=== PATIENT | female | born 1995 | race Caucasian/White ===

== ENCOUNTER 2016-12-31 06:54 | Emergency (ER) | payer BC ==
[2016-12-31] MEDS ORDERED: Acetaminophen ADULT LIQ* 650 MG/20.3 ML UDC PO ONE (07:23)
--- NOTE | 2016-12-31 07:46 | ED ---
Throat Pain/Nasal Congestion - HPI Summary HPI Summary: Patient arrives to ED with a CC of throat pain and mouth ulcers x 4 days. She was seen in a UC clinic 3 days ago and was prescribed lidocaine for the pain. States that she is diagnosed with strep throat 2x per year on average and this feels similar. She states it is painful to eat and swallow and she is unable to sleep due to the pain. Denies recent illness or sick contacts. Denies travel. She denies sexual history. She has tried ibuprofen without relief. - History of Current Complaint Chief Complaint: EDThroatPain Time Seen by Provider: 12/31/16 07:01 Hx Obtained From: Patient Onset/Duration: Gradual Onset Severity: Moderate Associated Signs And Symptoms: Positive: Dysphagia - Epiglottits Risk Factors Epiglottis Risk Factors: Negative - Allergies/Home Medications Allergies/Adverse Reactions: Allergies Allergy/AdvReac Type Severity Reaction Status Date / Time No Known Allergies Allergy Verified 12/31/16 07:02 PMH/Surg Hx/FS Hx/Imm Hx Previously Healthy: Yes Infectious Disease History: No Infectious Disease History: Denies: Traveled Outside the in Last 30 Days - Social History Occupation: Employed Full-time Lives: With Family Alcohol Use: None Hx Substance Use: No Substance Use Type: Reports: None Hx Tobacco Use: No Smoking Status (MU): Never Smoked Tobacco Do You Chew or Dip Tobacco: No Review of Systems Constitutional: Negative Eyes: Negative Positive: Sore Throat, Other - mouth pain and ulcers Cardiovascular: Negative Respiratory: Negative Positive: no symptoms reported, see HPI Musculoskeletal: Negative Positive: Other - oral mucosa with lesions Neurological: Negative Psychological: Normal All Other Systems Reviewed And Are Negative: Yes Physical Exam Triage Information Reviewed: Yes Vital Signs On Initial Exam: Initial Vitals Temp Pulse Resp BP Pulse Ox 97.8 F 79 15 125/79 100 12/31/16 06:58 12/31/16 06:58 12/31/16 06:58 12/31/16 06:58 12/31/16 06:58 Vital Signs Reviewed: Yes Appearance: Positive: Ill-Appearing, Pain Distress Skin: Positive: Warm, Dry, Other - dry mucous membranes, dry oral mucousa Head/Face: Positive: Normal Head/Face Inspection Eyes: Positive: Normal, Conjunctiva Inflammed - injected right eye ENT: Positive: Pharyngeal erythema - without exudates, TMs normal, Tonsillar swelling, Muffled/hoarse voice Dental: Positive: Oropharynx - oral mucousa with 3-4 bray ulcerated lesions with central clearing over top and bottom lips and inside of L cheek, no lesions noted on oropharynx Neck: Positive: Tenderness @ - cervical and anterior lymphnodes Respiratory/Lung Sounds: Positive: Breath Sounds Present Cardiovascular: Positive: Normal Musculoskeletal: Positive: Normal, Strength/ROM Intact Neurological: Positive: Sensory/Motor Intact, Speech Normal Psychiatric: Positive: Anxious - [place] Coma Scale Coma Scale Total: 15 Diagnostics - Vital Signs Vital Signs Temp Pulse Resp BP Pulse Ox 12/31/16 06:58 97.8 F 79 15 125/79 100 - Laboratory Lab Statement: Any lab studies that have been ordered have been reviewed, and results considered in the medical decision making process. EENT Course/Dx - Course Course Of Treatment: Patient seen by [facility] 3 days prior and given lidocaine for relief of apthous ulcers. Denies improvement. Will give Triamcinalone from [employer] and encourage tylenol and keeping mouth moist and using salt water rinses to help disinfect the area. Also encourage vitamin supplements, particularly Vitamin C as this has been shown to improve healing time. Rapid strep negative. Encourage follow up with PCP if symptoms continue. - Differential Diagnoses Differential Diagnoses: Gingivitis, Periodontic Disease, Peritonsillar Ulcer, Pharyngitis - Diagnoses Provider Diagnoses: Aphthous ulcer Discharge - Discharge Plan Condition: Stable Disposition: HOME Prescriptions: Naproxen TAB* [Naprosyn TAB*] 500 mg PO Q8H PRN #60 tab PRN Reason: Pain Triamcinolone Acetonide (Mouth [Triamcinolone in [employer]] 0.1 % MT Q8H #1 pst Patient Education Materials: Canker Sores (ED) Referrals: Genesis Mckeon MD [Primary Care Provider] - Additional Instructions: Increase intake of Vitamin C Triamcinalone cream to area 3-4x daily until healed Lidocaine as needed for comfort. Naproxen 500mg three times daily for discomfort. You may also take 350 Tylenol on opposite schedule of Naproxen to help with any discomfort. Images - Images Dental: 1 - apthous ulcer 2 - apthous ulcer 3 - apthous ulcer
[2016-12-31 08:50] VITALS: BP 109/69
== END 2016-12-31 08:48 | disposition home or self-care (01) ==
LOC: ED 06:54
DX: K12.0 Recurrent oral aphthae (principal)
CPT/HCPCS: 87651; 99282; A9270-GY